=== PATIENT | male | born 2005 | race Two or more races ===

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

== ENCOUNTER 2025-04-24 10:15 | Outpatient (CLI) | payer MEDICAID ==
--- NOTE | 2025-04-24 11:58 | RADIOLOGY REPORT ---
CLINICAL HISTORY: LOCALIZED SWELLING, MASS AND LUMP, HEAD TECHNIQUE: Routine multiplanar imaging of the brain was performed without gadolinium contrast. COMPARISON: None FINDINGS: There is no abnormal restricted diffusion to suggest acute infarction. There are no significant chronic small vessel ischemic foci. There is no evidence for acute ischemic changes, mass, mass effect, or extra- axial fluid collection. There is no hydrocephalus or midline shift. The cerebral sulci and subarachnoid cisterns are not effaced. The imaged paranasal sinuses are clear. The globes are intact. The midline structures, including the corpus callosum, are unremarkable. The intracranial flow voids are maintained. IMPRESSION: No root intracranial abnormality seen. No evidence for acute infarct. No significant white matter disease.
[2025-04-24] MEDS ORDERED: GADOTERATE MEGLUMINE 7.5 MMOL/15 ML VIAL IV ONE (17:27)
== END 2025-04-24 23:59 | disposition home or self-care (01) ==
LOC: MRI 10:15
PROVIDERS: ATTEND Family Medicine
DX: R22.0 Localized swelling, mass and lump, head (principal)
CPT/HCPCS: 70553; A9575